=== PATIENT | female | born 1960 | race American Indian/Alaskan Native ===

== ENCOUNTER 2020-10-07 04:17 | Day surgery (SDC) | payer OTHER ==
[2020-10-06 10:31] VITALS: BMI 35.5
[2020-10-07 06:52] LABS: EPI CELLS 8 /uL (0-25.1); HYALINE CASTS 1 /uL (0-3.1); PH,URINE 5.5 (5.0-8.0); URINE APPEARANCE CLOUDY; URINE BACTERIA 1124 /uL (0-1359); URINE BILIRUBIN NEGATIVE (NEGATIVE); URINE COLOR YELLOW; URINE GLUCOSE (UA) NEGATIVE (NEGATIVE); URINE KETONE NEGATIVE (NEGATIVE); URINE LEUK ESTERASE 3+ (NEGATIVE); URINE NITRITE NEGATIVE (NEGATIVE); URINE PROTEIN 1+ (NEGATIVE); URINE RBC 45 /uL (0-23.9); URINE UROBILINOGEN 0.2 mg/dL (0.2-1.0); URINE WBC 1458 /uL (0-25.8)
[2020-10-07] MEDS ORDERED: MIDAZOLAM HCL 2 MG/2 ML SINGLE DOSE VIAL ONE (07:51)
[2020-10-07] MEDS ORDERED: PROPOFOL 20 ML ONE ×2 (07:51→07:52)
[2020-10-07 11:21] VITALS: BP 139/65; PULSE 65; TEMP 97.5
== END 2020-10-07 11:10 | disposition home or self-care (01) ==
LOC: JASU-SURG 04:17
PROVIDERS: ATTEND Urology
PROC: 0TF4XZZ Fragmentation in Left Kidney Pelvis, External Approach (ICD-10-PCS; principal; 2020-10-07 08:00)
DX: N20.0 Calculus of kidney (principal)
CPT/HCPCS: 81003

== ENCOUNTER 2021-02-20 04:20 | Day surgery (SDC) | payer OTHER ==
[2021-02-19 08:57] VITALS: BMI 36.6
[2021-02-20] MEDS ORDERED: MIDAZOLAM HCL 2 MG/2 ML SINGLE DOSE VIAL ONE (14:34)
[2021-02-20] MEDS ORDERED: PROPOFOL 20 ML ONE ×2 (14:35→14:55)
[2021-02-20] MEDS ORDERED: ceFAZolin SODIUM 1 GM VIAL IVPB ONE (14:50)
[2021-02-20] MEDS ORDERED: LIDOCAINE HCL/PF 2% SDV 5ML VIAL ONE (15:43)
[2021-02-20] MEDS ORDERED: ePHEDrine SULFATE 50 MG/1 ML AMPULE ONE (15:43)
[2021-02-20] MEDS ORDERED: LACTATED RINGERS SOLUTION 1,000 ML IV SCH (16:30)
[2021-02-20] MEDS ORDERED: oxyCODONE HCL 5 MG TABLET PO PRN ×2 (16:30)
[2021-02-20] MEDS ORDERED: ONDANSETRON 4 MG/2 ML VIAL IVPUSH PRN (16:30)
[2021-02-20] MEDS ORDERED: PROMETHAZINE HCL 25 MG/1 ML VIAL IVPUSH PRN (16:30)
[2021-02-20 18:52] VITALS: BP 126/76; PULSE 86; TEMP 97.4
== END 2021-02-20 18:40 | disposition home or self-care (01) ==
LOC: JASU-SURG 04:20
PROVIDERS: ATTEND Urology
PROC: 0TC48ZZ Extirpation of Matter from Left Kidney Pelvis, Via Natural or Artificial Opening Endoscopic (ICD-10-PCS; principal; 2021-02-20 12:30)
PROC: 0T778DZ Dilation of Left Ureter with Intraluminal Device, Via Natural or Artificial Opening Endoscopic (ICD-10-PCS; 2021-02-20 12:30)
DX: N20.0 Calculus of kidney (principal)
CPT/HCPCS: 36415; 82360; 88300-TC; 94760

== ENCOUNTER 2022-07-30 04:21 | Day surgery (SDC) | payer OTHER ==
[2022-07-27 18:53] VITALS: BMI 35.9
[2022-07-30 09:56] LABS: INR 1.07 (0.83-1.09); PROTHROMBIN TIME (PATIENT) 12.4 SEC (9.7-13.0)
[2022-07-30 09:58] LABS: ACTIVATED PTT 31.2 SECONDS (25.2-36.5)
[2022-07-30] MEDS ORDERED: ONDANSETRON 4 MG/2 ML VIAL IVPUSH PRN (10:02)
[2022-07-30] MEDS ORDERED: oxyCODONE HCL 5 MG TABLET PO PRN (10:02)
[2022-07-30] MEDS ORDERED: LACTATED RINGERS SOLUTION 1,000 ML IV SCH (10:15)
[2022-07-30] MEDS ORDERED: PROPOFOL 40 ML ONE (10:38)
[2022-07-30] MEDS ORDERED: ceFAZolin SODIUM 1 GM VIAL IVPB ONE (10:42)
[2022-07-30] MEDS ORDERED: PROPOFOL 20 ML ONE (10:45)
[2022-07-30 14:50] VITALS: BP 135/63; PULSE 95; RESP 17; TEMP 97.5
[2022-08-05 21:07] LABS: CA OXALATE MONOHYDR. 95 % (.); SIZE 6x4 mm (.); WEIGHT 276 mg (.)
== END 2022-07-30 15:20 | disposition home or self-care (01) ==
LOC: JASU-SURG 04:21
PROVIDERS: ATTEND Urology
PROC: 0T778DZ Dilation of Left Ureter with Intraluminal Device, Via Natural or Artificial Opening Endoscopic (ICD-10-PCS; 2022-07-30)
PROC: 0TC18ZZ Extirpation of Matter from Left Kidney, Via Natural or Artificial Opening Endoscopic (ICD-10-PCS; principal; 2022-07-30 11:00)
DX: N20.0 Calculus of kidney (principal)
CPT/HCPCS: 36415; 82360; 85610; 85730; 88300-TC; 94760; C1758; C1769; C1894; C2617